=== PATIENT | female | born 1995 | race Caucasian/White ===

== ENCOUNTER 2017-06-12 23:05 | Emergency (ER) | payer OTHER ==
[2017-06-12 23:27] VITALS: BP 133/78; PULSE 88; RESP 18; TEMP 98.4; O2SAT 96
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
== END 2017-06-13 01:07 | disposition home or self-care (01) ==
DX: S00.03XA Contusion of scalp, initial encounter (principal); V49.40XA Driver injured in collision with unspecified motor vehicles in traffic accident, initial encounter; Y92.410 Unspecified street and highway as the place of occurrence of the external cause; Y99.8 Other external cause status; Y93.89 Activity, other specified